=== PATIENT | male | born 1935 | race Caucasian/White ===

== ENCOUNTER → 2019-09-04 | Outpatient (CLI) | payer OTHER ==
[~2019-09-04] MED LIST: ACTOS 30 MG TAB30 MG PO; DOXAZOSIN MESYLA4 MG PO; HYDRALAZINE 5050 MG PO; NORVASC 2.5 MG2.5 M1 PO; OXYBUTYNIN 5 MG5 M2 PO; SIMVASTATIN80 MG PO
== END ==
LOC: SJCVCIMAG 09:04
DX: I08.8 Other rheumatic multiple valve diseases (principal); I49.9 Cardiac arrhythmia, unspecified; R00.2 Palpitations; I10 Essential (primary) hypertension

== ENCOUNTER → 2019-09-12 | Outpatient (CLI) | payer OTHER | LOC: SJCVC 15:08 | DX: I49.9 Cardiac arrhythmia, unspecified (principal); I10 Essential (primary) hypertension; E11.9 Type 2 diabetes mellitus without complications; R94.2 Abnormal results of pulmonary function studies; M19.90 Unspecified osteoarthritis, unspecified site; N40.0 Benign prostatic hyperplasia without lower urinary tract symptoms; E78.00 Pure hypercholesterolemia, unspecified; Z96.653 Presence of artificial knee joint, bilateral; Z79.899 Other long term (current) drug therapy ==

== ENCOUNTER → 2019-10-03 | Outpatient (CLI) | payer OTHER ==
[~2019-10-03] VITALS: Ht 185.4 cm; Wt 90.7 kg
[2019-10-03 08:13] LABS: HEMATOCRIT 37.8 % (42.0-52.0); HEMOGLOBIN 12.2 gm/dL (14.0-18.0); MCH 30.5 pg (26.0-34.0); MCHC 32.2 g/dL (28.0-37.0); MCV 94.7 fL (80.0-100.0); RBC 3.99 mil/uL (4.50-6.00); RDW 14.1 % (10.5-14.5)
[2019-10-03 08:19] VITALS: BP 144/62
[2019-10-03 08:25] LABS: CREATININE 2.2 mg/dL (0.7-1.3); POTASSIUM 4.1 mmol/L (3.5-5.1)
--- NOTE | 2019-10-03 08:25 | EKG ---
[facility] [place] [address] ELECTROCARDIOGRAM REPORT Name: MISA PAINTER Room #: PRE [facility] M.R.#: [id number] Admission: Attend Phys: Liborio Townsend Discharge: Date of : 37 Report #: [id number] THIS REPORT FOR: cc: Shankar Rodriguez MD, David R. MD Lundgren, Craig H. 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: SANDRA, K : 1935 Requested By: Liborio Townsend Order Number: [id number] MD: David Colunga Measurements Intervals [place] Rate: 80 P: 44 HI: 150 QRS: -65 QRSD: 149 T: 33 QT: 424 QTc: 490 Interpretive Statements Sinus rhythm Atrial premature complex RBBB and LAFB Left ventricular hypertrophy No previous ECG available for comparison Electronically Signed On 10-03-2019 8:24:45 ANY [employer]ITY [employer] by David Colunga [email or web address] <ELECTRONICALLY SIGNED> By: David Colunga MD, [facility] 10/03/19823 1 1 David Colunga MD, [facility] /EPI
--- NOTE | 2019-10-03 12:00 | NUR ---
PT GIVEN 600CC NS PRIOR TO PROCEDURE FOR HYDRATION,
--- NOTE | 2019-10-19 13:53 | CATHLAB ---
[facility] [place] [address] INVASIVE PROCEDURE REPORT Name: MISA PAINTER Room #: REG HAIDER Jany#: [id number] Admission: 10/03/19 Attend Phys: Liborio Townsend Discharge: Date of : 37 Report #: [id number] THIS REPORT FOR: cc: Shankar Rodriguez MD, David R. MD Lammoglia, Francisco J. MD ~ APPROVED REPORT Study performed: 10/03/2019 12:04:46 Patient Details Patient Status: Out-Patient Room #: The patient is a 83 year-old male Event Personnel Liborio Townsend Syrup Shed Supervisor, Steff Caceres RN RN, Saima Haynes RTR Monitor, Sandy Dupree Monitor, Anjelica Mead RTR, MAIL FORWARDING SYSTEM MARKUP CLERK Scrub Procedures Performed Left Heart Cath w/or w/o Coronaries [id number] [facility] FFR 6141172 FFR Art Access - R femoral artery* Hemostasis w/ Mynx 66515 Initial Mod Sed Same Phys/QHP Gr5y 875182 12395 Mod Sed Same Phys/QHP Ea 269334, supervision of conscious sedation Indication Positive stress test, Chest pain Procedure Narrative The patient was brought electively to the Cardiac Catheterization Laboratory and was prepped and draped in a sterile manner. The Right Groin^ was infiltrated with 1% Lidocaine subcutaneous anesthesia. A PINNACLE 4FR Sheath #[id number] sheath was inserted into the RFA^. Coronary angiography was performed using coronary diagnostic catheters. The right coronary system was accessed and visualized with a JR4 catheter. The left coronary system was accessed and visualized with a JL4 catheter. The left ventricle was accessed and visualized with a JLR catheter. Closure device was deployed with a 6 Fr MYNX CONTROL 6F/7F L#[id number]. The patient tolerated the procedure well and there were no complications associated with the procedure. There was no hematoma. FFR pre-lesion was 1.00 and post lesion was 0.93 in the Right Coronary Artery. Intraoperative Conscious Sedation [facility] [address] [place] [address] INVASIVE PROCEDURE REPORT Name: MADINAMISA Room #: REG [facility]END[facility]#: [id number] Admission: 10/03/19 Attend Phys: Liborio Schultz Discharge: Date of : 37 Report #: [id number] Sedation start time: 12:33 Case end Time: 13:19 Versed 2 mg Fluoro Time: 1399.00 minutes Dose: DAP 9428.30 cGycm2 1399 mGy Contrast Type and Amount: Visipaque 85 ml Coronary Angiography The patient's coronary anatomy is left dominant. Diagnostic Cath Left Main The main is of normal origin and moderate to large caliber which gives rise to a that into descending left circumflex. There appears to be a 50% eccentric lesion and distally which does not impede antegrade flow. The vessel is calcified as noted on fluoroscopy LAD Moderate caliber type II vessel which has a heavily calcified proximal segment. There appears to be an eccentric lesion of approximately 60% which does not impede antegrade flow. It then continues in the anterior interventricular sulcus giving rise to septal and diagonal branches with irregularities noted of less than 50% until the distal third where there is an eccentric 50 to 60% lesion noted with the vessel being less than 1.5 mm diameter in this region. It then continues on and terminates at the apex is a small bifurcating vessel Diagonal 1 Moderate to small caliber vessel with moderate irregularities noted in its entire course no high-grade flow-limiting lesions Circumflex Dominant caliber vessel which gives rise to a first marginal branch it courses along the lateral last of the heart. The circumflex proper then continues on post daily given rise to posterior wall branches and a posterior descending artery with only irregularities noted no high-grade obstructive lesions OM1 Small to moderate caliber vessel coursing along the lateral aspect heart with luminal irregularities no high-grade lesions present L PDA Small caliber vessel without high-grade obstructive lesions noted Right Coronary Moderate caliber nondominant vessel with luminal irregularities with a lesion that appears to be significant in its proximal portion. IFR demonstrates hemodynamically insignificant. Ramus Small-caliber vessel with calcifications noted throughout its course and only moderate irregularities present [address] [address] INVASIVE PROCEDURE REPORT Name: MISA PAINTER Room #: ABRAHAM Carmichael#: [id number] Admission: 10/03/19 Attend Phys: Liborio Schultz Discharge: Date of : 37 Report #: [id number] Left Ventriculography Left Ventriculography was not performed. Hemodynamics The aortic pressure is 148/67 mmHg with a mean of 100 mmHg. The left ventricular pressure is 135/18 mmHg with a mean of mmHg. The left ventricular end diastolic pressure is 27 mmHg. Conclusion 1. Coronary artery disease moderate assisting of mild to moderate distal left main and moderate proximal left anterior descending artery 2. 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 Normal hemodynamics Recommendations Cardiac Risk Reduction Program Aggressive Medical Therapy <ELECTRONICALLY SIGNED> By: Liborio Townsend MD 10/19/19 1352 51 51 Liborio Townsend MD /INF
== END | disposition home or self-care (01) ==
LOC: CATH 09:12
PROVIDERS: Internal Medicine
DX: R94.39 Abnormal result of other cardiovascular function study (principal); R07.9 Chest pain, unspecified; I25.10 Atherosclerotic heart disease of native coronary artery without angina pectoris; I10 Essential (primary) hypertension; E11.9 Type 2 diabetes mellitus without complications; M19.90 Unspecified osteoarthritis, unspecified site; N40.0 Benign prostatic hyperplasia without lower urinary tract symptoms; E78.00 Pure hypercholesterolemia, unspecified; Z98.890 Other specified postprocedural states; Z79.899 Other long term (current) drug therapy